=== PATIENT | female | born 1985 | race Caucasian/White ===

== ENCOUNTER 2025-01-07 21:35 | Emergency (ER) | payer OTHER ==
[~2025-01-07] VITALS: Ht 165.1 cm; Wt 70.3 kg
[2025-01-07 23:03] VITALS: TEMP 98.3
[2025-01-07 23:22] LABS: PLATELET COUNT (AUTO) 269 K/uL (150-450); RED BLOOD CELL COUNT(AUTO) 4.35 MIL/uL (4.0-5.2); RED CELL DISTRIBUTION WIDTH 12.8 % (11.5-15.0); WHITE BLOOD COUNT (AUTO) 9.9 K/uL (4.3-11.0)
[2025-01-07 23:31] LABS: CALCIUM, SERUM 9.0 mg/dL (8.5-10.1); CREATININE 0.7 mg/dL (0.6-1.3); SODIUM SERUM 137.0 mmol/L (136-145); UREA NITROGEN, BLOOD 8.0 mg/dL (7-18)
[2025-01-07 23:34] LABS: ASPARTATE AMINOTRANSFERASE 22.0 U/L (15-37); TOTAL PROTEIN, SERUM 7.5 g/dL (6.4-8.2)
[2025-01-07 23:35] LABS: INR 0.93 (0.91-1.10)
[2025-01-08 00:37] VITALS: BP 111/73; O2SAT 98
== END 2025-01-08 00:37 | disposition home or self-care (01) ==
LOC: ER 21:43
DX: M79.601 Pain in right arm (principal); Z79.01 Long term (current) use of anticoagulants
CPT/HCPCS: 36415; 80053-TC; 85025-TC; 85610-TC; 85730-TC; 93971-TC